=== PATIENT | male | born 1935 | race African-American/Black ===

== ENCOUNTER → 2018-04-30 | Outpatient (CLI) | payer OTHER ==
[~2018-04-30] MED LIST: ACCUPRIL40 MG PO; ADULT LOW DOSE81 MG PO; ALLERCLEAR10 MG PO; HYDROCHLOROTH12.5 MG PO; SIMVASTATIN20 MG PO; TRADJENTA5 MG PO
== END ==
LOC: ULTRA 09:51
DX: I73.9 Peripheral vascular disease, unspecified (principal); L97.929 Non-pressure chronic ulcer of unspecified part of left lower leg with unspecified severity; L97.919 Non-pressure chronic ulcer of unspecified part of right lower leg with unspecified severity